=== PATIENT | female | born 1985 | race African-American/Black ===

== ENCOUNTER 2017-08-05 21:44 | Emergency (ER) | payer MEDICARE ==
[2017-08-06] MEDS ORDERED: Ketorolac Tromethamine 30 MG/ML VIAL ONE (01:15)
== END 2017-08-06 01:26 | disposition home or self-care (01) ==
LOC: ERS 21:44
DX: K02.9 Dental caries, unspecified (principal); J45.909 Unspecified asthma, uncomplicated; F17.210 Nicotine dependence, cigarettes, uncomplicated
CPT/HCPCS: 96372; J1885

== ENCOUNTER 2018-09-16 12:55 | Emergency (ER) | payer MEDICARE, MEDICAID | END 2018-09-16 13:44 | disposition home or self-care (01) | LOC: ERS 12:55 | DX: K08.89 Other specified disorders of teeth and supporting structures (principal); J45.909 Unspecified asthma, uncomplicated; F17.210 Nicotine dependence, cigarettes, uncomplicated | CPT/HCPCS: 99282 ==

== ENCOUNTER 2021-03-18 17:16 | Emergency (ER) | payer MEDICARE, MEDICAID ==
[2021-03-19 00:58] LABS: SARS-CoV-2 PCR by NAA DETECTED (NotDetected)
== END 2021-03-18 19:00 | disposition home or self-care (01) ==
LOC: ERS 17:16
DX: U07.1 COVID-19 (principal); K04.7 Periapical abscess without sinus; K02.9 Dental caries, unspecified; J45.909 Unspecified asthma, uncomplicated; F17.210 Nicotine dependence, cigarettes, uncomplicated
CPT/HCPCS: U0003; U0005; 99283